=== PATIENT | male | born 1990 | race Hispanic/Latino ===

== ENCOUNTER 2021-12-01 09:08 | Emergency (ER) | payer SELFPAY ==
--- NOTE | 2021-12-01 11:00 | EDPHYS ---
Physician Documentation [facility] Name: Teodoro Escoto Age: 31 yrs Sex: Male : 1990 Arrival Date: 12/01/2021 Time: 09:11 Bed 9 Private MD: ED Physician Jonathon Gallagher HPI: 12/01 09:30 This 31 yrs old Male presents to ER via Ambulatory with complaints of Cough, jh7 Congestion, Chest Pain, Sore Throat. 09:30 The patient or guardian reports cough. Onset: The symptoms/episode began/occurred this jh7 morning. Associated signs and symptoms: Pertinent positives: rhinorrhea, sore throat. pt presents with cough, chest congestion, and sore throat since this morning. He states that his work would like him to get a covid test.. Historical: - Allergies: 09:23 No Known Allergies; aa5 - Home Meds: 09:23 None [Active]; aa5 - PMHx: 09:23 None; aa5 - PSHx: 09:23 None; aa5 - Immunization history:: Adult Immunizations unknown. - Social history:: Smoking status: Patient reports the use of cigarette tobacco products, denies chronic smoking, but will smoke occasionally, Reported history of juuling and/or vaping. ROS: 09:30 Constitutional: Negative for fever, chills, and weight loss, Eyes: Negative for injury, jh7 pain, redness, and discharge, Neck: Negative for injury, pain, and swelling, Abdomen/GI: Negative for abdominal pain, nausea, vomiting, diarrhea, and constipation, Back: Negative for injury and pain, MS/Extremity: Negative for injury and deformity, Skin: Negative for injury, rash, and discoloration, Neuro: Negative for headache, weakness, numbness, tingling, and seizure. 09:30 ENT: Positive for sore throat. 09:30 Cardiovascular: Positive for chest pain. 09:30 Respiratory: Positive for cough. 09:30 All other systems are negative. Exam: 09:30 Constitutional: This is a well developed, well nourished patient who is awake, alert, jh7 and in no acute distress. Head/Face: Normocephalic, atraumatic. Neck: Trachea midline, no thyromegaly or masses palpated, and no cervical lymphadenopathy. Supple, full range of motion without nuchal rigidity, or vertebral point tenderness. No Meningismus. Cardiovascular: Regular rate and rhythm with a normal S1 and S2. No gallops, murmurs, or rubs. Normal PMI, no JVD. No pulse deficits. Respiratory: Lungs have equal breath sounds bilaterally, clear to auscultation and percussion. No rales, rhonchi or wheezes noted. No increased work of breathing, no retractions or nasal flaring. Abdomen/GI: Soft, non-tender, with normal bowel sounds. No distension or tympany. No guarding or rebound. No evidence of tenderness throughout. Skin: Warm, dry with normal turgor. Normal color with no rashes, no lesions, and no evidence of cellulitis. MS/ Extremity: Pulses equal, no cyanosis. Neurovascular intact. Full, normal range of motion. Neuro: Awake and alert, GCS 15, oriented to person, place, time, and situation. Motor strength 5/5 in all extremities. Sensory grossly intact. Normal gait. 09:30 ENT: post nasal drainage. Vital Signs: 09:23 BP 102 / 84; Pulse 70; Resp 16 S; Temp 98.2(TE); Pulse Ox 100% on R/A; Weight 72.57 kg aa5 (R); Height 5 ft. 5 in. (165.10 cm) (R); 10:51 BP 120 / 80; Pulse 62; Resp 16; Temp 98.2(O); Pulse Ox 100% on R/A; Pain 0/10; mb9 09:23 Body Mass Index 26.62 (72.57 kg, 165.10 cm) aa5 MDM: 09:18 Patient medically screened. [facility] 11:00 Differential Diagnosis: Influenza Upper Respiratory Infection Viral Syndrome. Data [facility] reviewed: vital signs, nurses notes. Data interpreted: Pulse oximetry: is 100 %. Interpretation: normal. Counseling: I had a detailed discussion with the patient and/or guardian regarding: the historical points, exam findings, and any diagnostic results supporting the discharge/admit diagnosis, to return to the emergency department if symptoms worsen or persist or if there are any questions or concerns that arise at home. 12/01 09:26 Order name: COVID-19 SARS RT PCR (Document "Date of Onset" if Symptomatic); Complete [facility] Time: 12:40 Administered Medications: No medications were administered Disposition Summary: 12/01/21 10:59 Discharge Ordered Location: Home [facility] Problem: new [facility] Symptoms: are unchanged [facility] Condition: Stable [facility] Diagnosis - Other specified diseases of upper respiratory tract [facility] Followup: [facility] - With: Private Physician - When: 2 - 3 days - Reason: Recheck today's complaints Discharge Instructions: - Discharge Summary Sheet [facility] - Upper Respiratory Infection, Adult [facility] Forms: - Medication Reconciliation Form [facility] - Thank You Letter [facility] - Work release form aa5 Prescriptions: - Tessalon Perles 100 mg Oral Capsule - take 1 capsule by ORAL route every 8 hours As needed; 15 capsule; Refills: 0, jh7 Product Selection Permitted Signatures: Dispatcher [employer] Sophie De Jesus RN RN aa5 Jud Disla FNP [employer]ER [facility]
--- NOTE | 2021-12-01 11:00 | ER ---
Nurse's Notes [facility] Name: Teodoro Escoto Age: 31 yrs Sex: Male : 1990 Arrival Date: 12/01/2021 Time: 09:11 Bed 9 Private MD: Diagnosis: Other specified diseases of upper respiratory tract Presentation: 12/01 09:21 Chief complaint: Patient states: "I just woke up with chest pain, cough, sore throat, aa5 and sinus stuff". Pt states "I came because my work needs me to get a covid test". Coronavirus screen: congestion, cough unrelated to allergies. Ebola Screen: Patient denies travel to an Ebola-affected area in the 21 days before illness onset. Initial Sepsis Screen: Does the patient meet any 2 criteria? No. Patient's initial sepsis screen is negative. Does the patient have a suspected source of infection? No. Patient's initial sepsis screen is negative. Risk Assessment: Do you want to hurt yourself or someone else? Patient reports no desire to harm self or others. Onset of symptoms was December 01, 2021. 09:21 Acuity: KRUPA 3 aa5 09:21 Method Of Arrival: Ambulatory aa5 Historical: - Allergies: 09:23 No Known Allergies; aa5 - Home Meds: 09:23 None [Active]; aa5 - PMHx: 09:23 None; aa5 - PSHx: 09:23 None; aa5 - Immunization history:: Adult Immunizations unknown. - Social history:: Smoking status: Patient reports the use of cigarette tobacco products, denies chronic smoking, but will smoke occasionally, Reported history of juuling and/or vaping. Screenin:33 Abuse screen: Denies threats or abuse. Nutritional screening: No deficits noted. mb9 Tuberculosis screening: No symptoms or risk factors identified. Fall Risk None identified. Assessment: 09:33 General: Appears in no apparent distress. Behavior is calm, cooperative, appropriate mb9 for age. Pain: Denies pain. Neuro: Level of Consciousness is awake, alert, obeys commands, Oriented to person, place, time, situation. Cardiovascular: Heart tones S1 S2 present Patient's skin is warm and dry. Rhythm is regular. Respiratory: Reports cough that is productive, Respiratory effort is even, unlabored, Respiratory pattern is regular, Breath sounds are clear bilaterally. GI: No signs and/or symptoms were reported involving the gastrointestinal system. : No signs and/or symptoms were reported regarding the genitourinary system. EENT: Reports sore throat since this morning . Derm: Skin is pink, warm \\T\\ dry. Musculoskeletal: Range of motion: intact in all extremities. 10:47 General: Appears in no apparent distress. Behavior is calm, cooperative, appropriate mb9 for age. Pain: Denies pain. Neuro: Level of Consciousness is awake, alert, obeys commands, Oriented to person, place, time, situation. Respiratory: Reports cough that is Respiratory effort is even, unlabored, relaxed, Respiratory pattern is regular, Breath sounds are clear bilaterally. Derm: Skin is intact, Skin is pink, warm \\T\\ dry. Vital Signs: 09:23 BP 102 / 84; Pulse 70; Resp 16 S; Temp 98.2(TE); Pulse Ox 100% on R/A; Weight 72.57 kg aa5 (R); Height 5 ft. 5 in. (165.10 cm) (R); 10:51 BP 120 / 80; Pulse 62; Resp 16; Temp 98.2(O); Pulse Ox 100% on R/A; Pain 0/10; mb9 09:23 Body Mass Index 26.62 (72.57 kg, 165.10 cm) aa5 ED Course: 09:11 Patient arrived in ED. mr 09:16 VenancioJud baeza, [facility] jh7 09:16 Jonathon Gallagher MD is Attending Physician. jh7 09:23 Triage completed. aa5 09:26 Amara Jacob, ED is Primary Nurse. mb9 09:33 Arm band placed on. mb9 09:33 Patient has correct armband on for positive identification. Bed in low position. Call mb9 light in reach. Side rails up X 1. 09:42 COVID-19 SARS RT PCR (Document "Date of Onset" if Symptomatic) Sent. mb9 11:21 No provider procedures requiring assistance completed. Patient did not have IV access mb9 during this emergency room visit. Administered Medications: No medications were administered Medication: 11:20 VIS not applicable for this client. mb9 Outcome: 10:59 Discharge ordered by . 7 11:19 Discharged to home ambulatory. mb9 11:19 Condition: stable 11:19 Discharge instructions given to patient, Instructed on discharge instructions, follow up and referral plans. medication usage, Demonstrated understanding of instructions, follow-up care, medications, Prescriptions given X 1. 11:22 Patient left the ED. mb9 Signatures: Amara Azevedo mr JiménezSophie, RN RN aa5 Jud Disla, WIG COMBER WIG COMBER jh7 Amara Jacob, RN RN mb9 Corrections: (The following items were deleted from the chart) 09:25 09:23 Pulse 70bpm; Resp 16bpm; Spontaneous; Pulse Ox 100% RA; Temp 98.2F Temporal; aa5 72.57 kg Reported; Height 5 ft. 5 in. Reported; BMI: 26.6; aa5 09:39 09:33 Neuro: Level of Consciousness is awake, alert, obeys commands, Oriented to mb9 person, place, time, situation, Hospital Staff Pharmacist are mb9 09:41 09:33 General: Appears in no apparent distress. Behavior is calm, cooperative, mb9 appropriate for age, mb9 :39 09:33 EENT: No signs and/or symptoms were reported regarding the EENT system. mb9 mb9 10:58 10:51 Pulse 62bpm; Resp 16bpm; Pulse Ox 100% RA; Temp 98.2F Oral; Pain 0/10; mb9 mb9
[2021-12-03 19:36] VITALS: TEMP 98.2; O2SAT 100
[2021-12-03 19:37] VITALS: BP 120/80
== END 2021-12-01 11:22 | disposition home or self-care (01) ==
LOC: ER 09:08
DX: J39.8 Other specified diseases of upper respiratory tract (principal); Z20.822 Contact with and (suspected) exposure to COVID-19
CPT/HCPCS: 99283; U0003